=== PATIENT | female | born 1985 | race Hispanic/Latino ===

== ENCOUNTER 2016-08-14 12:52 | Emergency (ER) | payer MEDICAID ==
[2016-08-14 13:27] VITALS: BP 113/73
--- NOTE | 2016-08-14 18:22 | Emergency Department Report ---
ED Extremity Problem HPI - General Chief complaint: Extremity Injury, Lower Stated complaint: L ANKLE INJURY Time Seen by Provider: 08/14/16 18:20 Source: patient, family Mode of arrival: Ambulatory Limitations: No Limitations - History of Present Illness Initial comments: Patient presents with her mother and grandmother as she has Down syndrome and schizophrenia. Her mother states that she was here on 08/12/16 for a drug reaction. The mother states that after taking that medication the patient was combative and rode to the hospital in the ambulance and injured her left lateral ankle at that time. The ankle was not x-rayed on 08/12/16. The patient does not recall the incident. Patient also presents with hypoglycemia and triage of 49, last being 101. Mother and grandmother state that patient has an insulin pump and has an plant pathologist. Mother states that they are working on trying to get her BG's regulated. MD Complaint: extremity pain, extremity swelling -: Sudden Location: left, other (ankle) History of Same: No Radiation: none Severity scale (0 -10): 5 Quality: aching, dull Consistency: constant Associated Symptoms: denies other symptoms - Related Data Previous Rx's Medication Instructions Recorded Last Taken Type Ibuprofen [Motrin 800 MG tab] 800 mg PO Q8HR PRN #20 tablet 08/14/16 Unknown Rx Allergies Allergy/AdvReac Type Severity Reaction Status Date / Time perphenazine Allergy Unknown Verified 08/12/16 17:15 ED Review of Systems ROS: Stated complaint: L ANKLE INJURY Other details as noted in HPI Constitutional: denies: chills, fever ENT: denies: ear pain, throat pain Respiratory: denies: cough, shortness of breath, wheezing Cardiovascular: denies: chest pain, palpitations Genitourinary: denies: urgency, dysuria, discharge Musculoskeletal: as per HPI, joint swelling Skin: other (2 abrasions on the left lateral ankle). denies: rash, lesions Neurological: denies: headache, weakness, paresthesias ED Past Medical Hx - Past Medical History Hx Diabetes: Yes Hx Psychiatric Treatment: Yes (Schzophrenia) Additional medical history: Down Syndrome. hypothyroidism - Surgical History Additional Surgical History: insulin pump, tonsillectomy - Social History Smoking Status: Never Smoker Substance Use Type: None - Medications Home Medications: Home Medications Medication Instructions Recorded Confirmed Last Taken Type Ibuprofen [Motrin 800 MG tab] 800 mg PO Q8HR PRN #20 tablet 08/14/16 Unknown Rx ED Physical Exam - General Limitations: No Limitations General appearance: alert, in no apparent distress - Head Head exam: Present: atraumatic, normocephalic - Respiratory Respiratory exam: Present: normal lung sounds bilaterally. Absent: respiratory distress - Cardiovascular Cardiovascular Exam: Present: regular rate, normal rhythm. Absent: systolic murmur, diastolic murmur, rubs, gallop - Extremities Exam Extremities exam: Present: normal inspection - Expanded Lower Extremity Exam Left Knee exam: Present: normal inspection, full ROM Lower Leg exam: Present: normal inspection, full ROM Ankle exam: Present: normal inspection, tenderness (left lateral), swelling ( left lateral), abrasion (x2 left lateral, approx 1 cm each, anterior and posterior to lateral ankle, area is scabbed over, no drainage, redness or warmth present.). Absent: full ROM (without pain) Foot/Toe exam: Present: normal inspection, full ROM Neuro vascular tendon exam: Present: no vascular compromise Gait: Positive: observed and limited by pain - Back Exam Back exam: Present: normal inspection, full ROM - Neurological Exam Neurological exam: Present: alert, oriented X3 - Psychiatric Psychiatric exam: Present: normal affect, normal mood, other - Skin Skin exam: Present: other (stated above) ED Course Vital Signs 08/14/16 13:07 Temperature 97.5 F L Pulse Rate 92 H Respiratory 18 Rate Blood Pressure 113/73 O2 Sat by Pulse 99 Oximetry ED Medical Decision Making - Radiology Data PROCEDURE: XR ANKLE 2V LT TECHNIQUE: Two views of the left ankle are obtained HISTORY: ankle pain after injury COMPARISON: No prior studies are available for comparison. FINDINGS: Soft tissue swelling is seen being greatest laterally. Minimal arthritic changes are seen in the ankle. No widening of the ankle mortise is seen. No fracture is seen. IMPRESSION: Soft tissue swelling is seen without evidence of fracture. - Medical Decision Making Patient presents with left lateral ankle pain and swelling. Ankle x-ray soft tissue swelling with no fracture. - Differential Diagnosis ankle sprain, ankle fracture Critical Care Time: No Critical care attestation.: If time is entered above; I have spent that time in minutes in the direct care of this critically ill patient, excluding procedure time. ED Disposition Clinical Impression: Soft tissue swelling, Left ankle sprain, Hypoglycemia Disposition: DISCHARGED TO HOME OR SELFCARE Is pt being admited?: No Does the pt Need Aspirin: No Condition: Stable Instructions: Ankle Sprain (ED), Ankle Exercises (GEN) Additional Instructions: Follow-up with plant pathologist for diabetes and hypoglycemia. Prescriptions: Ibuprofen [Motrin 800 MG tab] 800 mg PO Q8HR PRN #20 tablet PRN Reason: Pain Referrals: PRIMARY CAREMD [Primary Care Provider] - 3-5 Days SORAYA CELIS MD [Staff Physician] - 3-5 Days SADIE BAE MD [Staff Physician] - 3-5 Days Time of Disposition: 20:45
--- NOTE | 2016-08-14 19:58 | XRay Report ---
FINAL REPORT PROCEDURE: XR ANKLE 2V LT TECHNIQUE: Two views of the left ankle are obtained HISTORY: ankle pain after injury COMPARISON: No prior studies are available for comparison. FINDINGS: Soft tissue swelling is seen being greatest laterally. Minimal arthritic changes are seen in the ankle. No widening of the ankle mortise is seen. No fracture is seen. IMPRESSION: Soft tissue swelling is seen without evidence of fracture.
== END 2016-08-14 21:39 | disposition home or self-care (01) ==
LOC: ED 12:52
DX: S93.402A Sprain of unspecified ligament of left ankle, initial encounter (principal); E11.649 Type 2 diabetes mellitus with hypoglycemia without coma; R79.89 Other specified abnormal findings of blood chemistry; F20.9 Schizophrenia, unspecified; E03.9 Hypothyroidism, unspecified; X58.XXXA Exposure to other specified factors, initial encounter; Y93.9 Activity, unspecified; Y92.9 Unspecified place or not applicable; Y99.9 Unspecified external cause status
CPT/HCPCS: 82962; 99283